=== PATIENT | male | born 1995 | race Caucasian/White ===

== ENCOUNTER 2019-08-16 01:45 | Emergency (ER) | payer OTHER ==
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
--- NOTE | 2019-08-16 07:39 | CR ---
[id number] RAD/RAD Chest PA And Lateral EXAM: RAD Chest PA And Lateral CLINICAL DATA: SHORTNESS OF BREATH COMPARISON: NO PREVIOUS SIMILAR EXAM IS AVAILABLE. FINDINGS: The lungs are clear and hyperaerated. The cardiomediastinal contour is normal. The regional bones and soft tissues are unremarkable. IMPRESSION: AIRWAY DISEASE Davian Lopez MD 08/16/19 0738 Thank you for allowing us to participate in the care of your patient.
== END 2019-08-16 02:33 | disposition home or self-care (01) ==
LOC: VM.ED 01:45
DX: Z77.9 Other contact with and (suspected) exposures hazardous to health (principal)
CPT/HCPCS: 71046; 99283-25